=== PATIENT | male | born 1960 | race African-American/Black ===

== ENCOUNTER → 2023-04-05 | Outpatient (CLI) | payer OTHER ==
[~2023-04-05] MED LIST: HOLD METFORMIN - RECEIVED CONTRAST 20 ML VIAL IV SCH; IOHEXOL 350 MG/ML 100 ML (OMNIPAQUE 350) VIAL IV ONE; NS 100 ML (IVPB) BAG IV ONE
[2023-04-05 08:21] LABS: CREATININE SERUM 1.33 MG/DL (0.60-1.30)
--- NOTE | 2023-04-05 09:25 | Diagnostic Imaging Report ---
EXAMINATION: CT abdomen and pelvis with and without intravenous contrast. TECHNIQUE: Precontrast acquisitions were acquired through the abdomen and pelvis. Multiple contiguous axial images were obtained through the abdomen and pelvis after the administration of intravenous contrast. All CT scans use one or more of the following dose optimizing techniques: automated exposure control, MA and/or KvP adjustment based on patient size and exam type or iterative reconstruction. HISTORY: Chronic UTI, cystitis. COMPARISON: None available. FINDINGS: Lung bases: Bibasilar dependent atelectasis. Solid organs: The liver is normal without focal lesion. The gallbladder is normal. There is no biliary ductal dilation. Pancreas is normal. Spleen is normal. Adrenal glands are normal. The kidneys are unremarkable without visualized calculus, hydronephrosis, or suspicious enhancing renal lesion. The ureters are patent and normal in caliber. Bowel: The stomach and small bowel are normal without obstruction. The colon is normal. The appendix is normal. Peritoneum: There is no intraperitoneal free fluid or free air. No suspicious lymphadenopathy. Vasculature: Calcification of the aorta without aneurysm. Musculoskeletal: Degenerative changes of the spine without suspicious osseous lesion or compression fracture. There are bilateral L4 pars defects with grade 1 anterolisthesis of L4 on L5. Pelvis: The prostate gland is normal. The urinary bladder is normal. IMPRESSION: 1. Unremarkable appearance of the kidneys, ureters, and urinary bladder. Dictated by: Dictated on workstation # [id number]
== END ==
LOC: RAD 07:05
PROVIDERS: ATTEND Nurse Practitioner Family
DX: N39.0 Urinary tract infection, site not specified (principal)
CPT/HCPCS: 36415; 74178; 82565; 84520